=== PATIENT | female | born 1985 | race Caucasian/White ===

== ENCOUNTER 2017-10-11 10:45 | Emergency (ER) | payer MEDICAID ==
[~2017-10-11] VITALS: Ht 167.6 cm; Wt 75.0 kg
[2017-10-11] MEDS ORDERED: SODIUM CHLORIDE 0.9% 1,000 ML IV ONE (11:28)
[2017-10-11] MEDS ORDERED: LORAZEPAM 1MG TABLET PO ONE (11:30)
[2017-10-11 11:40] LABS: CLARITY URINE TURBID (CLEAR); COLOR URINE YELLOW (YELLOW); KETONES URINE NEGATIVE (NEGATIVE); LEUKOCYTE ESTERASE URINE NEGATIVE (NEGATIVE); NITRITE URINE NEGATIVE (NEGATIVE); OCCULT BLOOD URINE NEGATIVE (NEGATIVE); PH URINE >=9.0 (4.5-8.0); PROTEIN URINE NEGATIVE (NEGATIVE); SPECIFIC GRAVITY URINE 1.015 (1.005-1.030); UROBILINOGEN URINE 0.2 E.U./dL (0.2-1.0)
[2017-10-11 12:13] LABS: *AMPHETAMINES SCREEN URINE NEGATIVE (NEGATIVE); *BARBITURATES SCREEN URINE NEGATIVE (NEGATIVE); *BENZODIAZEPINES SCREEN URINE NEGATIVE (NEGATIVE); *COCAINE SCREEN URINE NEGATIVE (NEGATIVE); METHADONE URINE SCREEN NEGATIVE (NEGATIVE); OPIATES URINE SCREEN NEGATIVE (NEGATIVE)
[2017-10-11 12:14] LABS: CANNABINOID URINE SCREEN NEGATIVE (NEGATIVE); PHENCYCLIDINE URINE SCREEN NEGATIVE (NEGATIVE)
[2017-10-11 12:16] LABS: BASOPHILS % 0.4 % (0.0-2.0); CHLORIDE 107 mEq/L (98-107); EOSINOPHILS % 1.9 % (0.0-5.0); HEMATOCRIT. 39.9 % (36.0-48.0); HEMOGLOBIN. 13.5 g/dL (12.0-16.0); MEAN CORPUSCULAR HEMOGLOBIN 29.6 pg (28.0-32.0); MEAN CORPUSCULAR VOLUME 87.2 fL (81.0-99.0); MEAN PLATELET VOLUME 9.3 fl (7.4-10.4); MONOCYTES % 7.9 % (2.0-8.0); NEUTROPHILS % 59.8 % (40.0-76.0); PLATELET 215 x1000/uL (130-400); RED BLOOD CELL COUNT 4.57 mill/uL (4.2-5.4)
[2017-10-11 12:20] LABS: ETHANOL BLOOD < 10 mg/dL
[2017-10-11 12:26] LABS: PROTHROMBIN TIME 10.4 sec (9.4-11.6)
[2017-10-11 12:33] LABS: HCG SCREEN NEGATIVE
[2017-10-11 14:25] VITALS: BP 114/55
== END 2017-10-11 14:32 | disposition home or self-care (01) ==
LOC: ER 10:45
DX: F41.0 Panic disorder [episodic paroxysmal anxiety] (principal); R03.0 Elevated blood-pressure reading, without diagnosis of hypertension; Z86.59 Personal history of other mental and behavioral disorders
CPT/HCPCS: 36415; 71045; 80053; 80305; 81003; 84703; 85025; 85610; 93005; 99285; G0482; J7030; Z7610

== ENCOUNTER 2018-02-14 19:21 | Emergency (ER) | payer MEDICAID ==
[~2018-02-14] VITALS: Ht 167.6 cm; Wt 79.0 kg
[2018-02-14] MEDS ORDERED: KETOROLAC 30MG/ML VIAL IV STA (20:54)
[2018-02-14] MEDS ORDERED: SODIUM CHLORIDE 0.9% 1,000 ML IV ONE (20:54)
[2018-02-14] MEDS ORDERED: ACETAMINOPHEN 325MG TABLET PO STA (20:54)
[2018-02-14 20:58] LABS: CLARITY URINE CLOUDY (CLEAR); COLOR URINE YELLOW (YELLOW); KETONES URINE TRACE (NEGATIVE); LEUKOCYTE ESTERASE URINE TRACE (NEGATIVE); NITRITE URINE NEGATIVE (NEGATIVE); OCCULT BLOOD URINE 1+ (NEGATIVE); PROTEIN URINE NEGATIVE (NEGATIVE); SPECIFIC GRAVITY URINE 1.024 (1.005-1.030); UROBILINOGEN URINE 0.2 E.U./dL (0.2-1.0)
[2018-02-14 22:04] LABS: HEMATOCRIT. 41.5 % (36.0-48.0); MEAN CORPUSCULAR HEMOGLOBIN 29.5 pg (28.0-32.0); MEAN CORPUSCULAR VOLUME 87.6 fL (81.0-99.0); PLATELET 128 x1000/uL (130-400); RED BLOOD CELL COUNT 4.73 mill/uL (4.2-5.4); RED CELL DISTRIBUTION WIDTH 14.8 % (11.6-14.6)
[2018-02-14 22:25] LABS: PLATELET ESTIMATE DECREASED
[2018-02-14 23:37] LABS: CHLORIDE 108 mEq/L (98-107)
[2018-02-15 00:27] VITALS: BP 102/45
== END 2018-02-15 00:29 | disposition home or self-care (01) ==
LOC: ER 19:21
DX: N30.00 Acute cystitis without hematuria (principal); M79.18 Myalgia, other site; K76.0 Fatty (change of) liver, not elsewhere classified; R10.9 Unspecified abdominal pain; F17.200 Nicotine dependence, unspecified, uncomplicated; Z90.49 Acquired absence of other specified parts of digestive tract
CPT/HCPCS: 36415; 76705; 80048; 81003; 81025; 83690; 85025; 96374; 99285; 99406; J1885; J7030

== ENCOUNTER 2021-10-18 00:45 | Emergency (ER) | payer MEDICAID ==
[~2021-10-18] VITALS: Ht 167.6 cm; Wt 78.0 kg
[2021-10-18] MEDS ORDERED: SUMATRIPTAN SUCCINATE 25MG TABLET PO ONE (05:45)
[2021-10-18] MEDS ORDERED: KETOROLAC 15MG/ML VIAL IM ONE (05:45)
[2021-10-18 07:01] VITALS: BP 106/75
== END 2021-10-18 07:04 | disposition home or self-care (01) ==
LOC: ER 00:45
DX: R51.9 Headache, unspecified (principal); F31.9 Bipolar disorder, unspecified; Z90.49 Acquired absence of other specified parts of digestive tract; Z98.51 Tubal ligation status
CPT/HCPCS: 70450; 81025; 96372; 99284; J1885